=== PATIENT | female | born 1945 | race African-American/Black ===

== ENCOUNTER 2017-11-30 07:23 | Emergency (ER) | payer MEDICARE, SELFPAY ==
[2017-11-30] MEDS ORDERED: Labetalol HCl 100 MG/20 ML VIAL ONE ×2 (08:00→08:37)
[2017-11-30 08:43] LABS: Anion Gap 18 mmol/L (10-20); BUN (Urea Nitrogen) 20 mg/dL (9.8-20.1); Calc. Creatinine Clearance 0 mL/min (70-130); Calcium 9.5 mg/dL (7.8-10.44); Carbon Dioxide 21 mmol/L (23-31); Chloride 102 mmol/L (98-107); Estimated GFR-MDRD 69; Glucose 142 mg/dL (80-115); Potassium 4.3 mmol/L (3.5-5.1); Sodium 137 mmol/L (136-145)
[2017-11-30 08:56] LABS: #Basophils 0.2 thou/uL (0.0-0.2); #Eosinphils 0.1 thou/uL (0.0-0.7); #Lymphocytes 2.4 thou/uL (1.20-3.40); #Monocytes 0.5 thou/uL (0.11-0.59); #Neutrophils 4.7 thou/uL (1.40-6.50); %Basophils 2.1 % (0.0-1.0); %Monocytes 5.9 % (0.0-10.0); Hemoglobin 12.8 g/dL (12.0-16.0); Mean Corpuscular HGB CONC 31.8 g/dL (32.0-36.0); Mean Corpuscular Hemoglobin 26.5 pg (27.0-31.0); Mean Corpuscular Volume 83.3 fl (81.0-99.0); Mean Platelet Volume 13.8 fL (7.4-10.4); Platelet Count 178 thou/uL (130-400); RBC Distribution Width 12.2 % (11.5-14.5); Red Blood Cell (RBC) Count 4.83 mill/uL (4.20-5.40); White Blood Cell (WBC) Count 7.9 thou/uL (4.8-10.8)
== END 2017-11-30 09:20 | disposition home or self-care (01) ==
LOC: NAV ERS 07:23
DX: H43.11 Vitreous hemorrhage, right eye (principal); I10 Essential (primary) hypertension; E11.9 Type 2 diabetes mellitus without complications; F17.210 Nicotine dependence, cigarettes, uncomplicated; Z79.899 Other long term (current) drug therapy
CPT/HCPCS: 80048; 85025; 96374; 99406

== ENCOUNTER 2018-02-24 07:24 | Emergency (ER) | payer MEDICARE | END 2018-02-24 08:01 | disposition home or self-care (01) | LOC: NAV ERS 07:24 | DX: M25.531 Pain in right wrist (principal); M25.541 Pain in joints of right hand; I10 Essential (primary) hypertension; E11.9 Type 2 diabetes mellitus without complications; F17.210 Nicotine dependence, cigarettes, uncomplicated; Z79.899 Other long term (current) drug therapy | CPT/HCPCS: 99283 ==

== ENCOUNTER 2018-04-02 11:02 | Emergency (ER) | payer MEDICARE ==
[2018-04-02 13:04] LABS: Hemoglobin 10.3 g/dL (12.0-16.0); Mean Corpuscular HGB CONC 31.4 g/dL (32.0-36.0); Mean Corpuscular Hemoglobin 25.8 pg (27.0-31.0); Mean Corpuscular Volume 82.3 fl (81.0-99.0); Mean Platelet Volume 10.5 fL (7.4-10.4); Platelet Count 264 thou/uL (130-400); RBC Distribution Width 11.6 % (11.5-14.5); White Blood Cell (WBC) Count 11.2 thou/uL (4.8-10.8)
[2018-04-02 13:13] LABS: ALT (SGPT) 8 U/L (8-55); AST (SGOT) 12 U/L (5-34); Albumin 3.3 g/dL (3.4-4.8); Alkaline Phosphatase 78 U/L (40-150); Anion Gap 15 mmol/L (10-20); BUN (Urea Nitrogen) 15 mg/dL (9.8-20.1); Bilirubin, Total 0.3 mg/dL (0.2-1.2); Calc. Creatinine Clearance 0 mL/min (70-130); Calcium 9.1 mg/dL (7.8-10.44); Carbon Dioxide 23 mmol/L (23-31); Chloride 103 mmol/L (98-107); Estimated GFR-MDRD 86; Globulin 3.4 g/dL (2.4-3.5); Glucose 156 mg/dL (80-115); Potassium 4.3 mmol/L (3.5-5.1); Protein, Total 6.7 g/dL (6.0-8.3); Sodium 137 mmol/L (136-145)
[2018-04-02 13:14] LABS: Band 2 % (5-11); Eosinophils 1 % (0-10); Hypochromia SLIGHT = 6-15 cells (100X) (0-5/hpf); Lymphocytes 26 % (21-51); MDiff Complete? YES; Monocytes 6 % (0-10); Neutrophil 64 % (42-75); PLT Morphology Comment Appears Adequate
[2018-04-02 14:08] LABS: Bilirubin Negative (Negative); Blood, Urine Small (Negative); Clarity Slightly Cloudy (Clear); Glucose, Urine (Dipstick) Negative (Negative); Leukocyte Moderate (Negative); Nitrite Positive (Negative); Protein, Urine (Dipstick) 30 mg/dL (Neg-Trace); Specific Gravity, Urine 1.015 (1.005-1.030)
[2018-04-02 14:16] LABS: Bacteria/HPF 3+ HPF (None Seen); RBC/HPF 0-3 HPF (0-3); Squamous Epithelial 0-3 HPF (0-3)
== END 2018-04-02 14:32 | disposition home or self-care (01) ==
LOC: NAV ERS 11:02
DX: N30.00 Acute cystitis without hematuria (principal); E11.65 Type 2 diabetes mellitus with hyperglycemia; I10 Essential (primary) hypertension; F17.210 Nicotine dependence, cigarettes, uncomplicated
CPT/HCPCS: 36416; 80053; 81003; 81015; 84443; 85025; 87077; 87086; 87186; 96360

== ENCOUNTER 2018-04-08 07:16 | Emergency (ER) | payer MEDICARE | END 2018-04-08 07:45 | disposition home or self-care (01) | LOC: NAV ERS 07:16 | DX: M13.0 Polyarthritis, unspecified (principal); E11.9 Type 2 diabetes mellitus without complications; I10 Essential (primary) hypertension; F17.210 Nicotine dependence, cigarettes, uncomplicated; Z79.899 Other long term (current) drug therapy | CPT/HCPCS: 99283 ==

== ENCOUNTER 2019-10-23 09:48 | Emergency (ER) | payer MEDICARE ==
[2019-10-23] MEDS ORDERED: Sodium Chloride 0.9% 1,000 ML ONE (10:10)
[2019-10-23] MEDS ORDERED: Adenosine 6 MG/2 ML VIAL ONE (10:38)
[2019-10-23 10:41] LABS: ALT (SGPT) 10 U/L (8-55); AST (SGOT) 18 U/L (5-34); Albumin 3.9 g/dL (3.4-4.8); Alkaline Phosphatase 81 U/L (40-110); Anion Gap 20 mmol/L (10-20); BUN (Urea Nitrogen) 20 mg/dL (9.8-20.1); Bilirubin, Total 0.2 mg/dL (0.2-1.2); CK (CPK) 121 U/L (29-168); Calc. Creatinine Clearance 0 mL/min (70-130); Calcium 8.6 mg/dL (7.8-10.44); Carbon Dioxide 23 mmol/L (23-31); Chloride 103 mmol/L (98-107); Estimated GFR-MDRD 49; Globulin 3.2 g/dL (2.4-3.5); Glucose 200 mg/dL (83-110); Protein, Total 7.1 g/dL (6.0-8.3); Sodium 142 mmol/L (136-145)
[2019-10-23 11:15] LABS: Hemoglobin 12.7 g/dL (12.0-16.0); MDiff Complete? YES; Mean Corpuscular HGB CONC 30.6 g/dL (32.0-36.0); Mean Corpuscular Hemoglobin 26.7 pg (27.0-31.0); Mean Corpuscular Volume 87.1 fL (78.0-98.0); Mean Platelet Volume 11.1 fL (7.4-10.4); Platelet Count 193 thou/uL (130-400); RBC Distribution Width 13.1 % (11.5-14.5); Red Blood Cell (RBC) Count 4.79 mill/uL (4.20-5.40); White Blood Cell (WBC) Count 5.7 thou/uL (4.8-10.8)
[2019-10-23 11:16] LABS: Eosinophils 2 % (0-10); Lymphocytes 30 % (21-51); Monocytes 9 % (0-10); Neutrophil 59 % (42-75); Platelet Morphology Comment Appears Adequate
[2019-10-23 14:08] LABS: Lactic Acid 1.6 mmol/L (0.5-2.2)
[2019-10-23] MEDS ORDERED: Digoxin 0.125 MG TAB ONE (14:17)
== END 2019-10-23 14:30 | disposition home or self-care (01) ==
LOC: NAV ERS 09:48
DX: I47.1 Supraventricular tachycardia (principal); J06.9 Acute upper respiratory infection, unspecified; E11.9 Type 2 diabetes mellitus without complications; I10 Essential (primary) hypertension; M19.90 Unspecified osteoarthritis, unspecified site; F17.210 Nicotine dependence, cigarettes, uncomplicated; Z79.899 Other long term (current) drug therapy
CPT/HCPCS: 80053; 82550; 83605; 84484; 85025; 87804; 93005; 96361; 96374; J0153; J7050

== ENCOUNTER 2023-11-05 21:51 | Emergency (ER) | payer OTHER, BC ==
[~2023-11-05 21:51] MED LIST: AMIODARONE 150 MG/100 ML ONE
[2023-11-05] MEDS ORDERED: Ipratropium/Albuterol 3 ML NEB ONE (22:01)
[2023-11-05] MEDS ORDERED: Nitroglycerin 2% Ointment 1 INCH/1 GM Packet ONE (22:03)
[2023-11-05] MEDS ORDERED: Amiodarone 150 MG/3 ML VIAL ONE (22:20)
[2023-11-05] MEDS ORDERED: Aspirin Chewable 81 MG TAB ONE (22:20)
[2023-11-05] MEDS ORDERED: Sodium Chloride 0.9% 100 ML ONE ×2 (22:20→23:01)
[2023-11-05 22:21] LABS: Red Blood Cell (RBC) Count 4.93 mill/uL (4.20-5.40)
[2023-11-05 22:22] LABS: #Lymphocytes 4.8 thou/uL (1.20-3.40); #Monocytes 0.7 thou/uL (0.11-0.59); %Basophils 2.7 % (0.0-1.0); %Eosinophils 2.2 % (0.0-10.0); %Lymphocytes 47.9 % (21.0-51.0); %Monocytes 7.3 % (0.0-10.0); %Neutrophils 39.9 % (42.0-75.0); Hematocrit 43.5 % (36.0-47.0); Hemoglobin 13.7 g/dL (12.0-16.0); Manual Diff?? NO; Mean Corpuscular HGB CONC 31.4 g/dL (32.0-36.0); Mean Corpuscular Hemoglobin 27.7 pg (27.0-31.0); Mean Corpuscular Volume 88.4 fl (78.0-98.0); Mean Platelet Volume 10.8 fL (7.4-10.4); Platelet Count 233 10x3/uL (130-400); RBC Distribution Width 13.1 % (11.5-14.5)
[2023-11-05 22:23] LABS: #Basophils 0.3 thou/uL (0.0-0.2); #Eosinphils 0.2 thou/uL (0.0-0.7)
[2023-11-05 22:31] LABS: ALT (SGPT) 7 U/L (8-55); AST (SGOT) 17 U/L (5-34); Albumin 4.4 g/dL (3.4-4.8); Alkaline Phosphatase 85 U/L (40-110); Anion Gap 17 mmol/L (10-20); BUN (Urea Nitrogen) 24 mg/dL (9.8-20.1); Bilirubin, Total 0.4 mg/dL (0.2-1.2); Calc. Creatinine Clearance 0 mL/min (70-130); Calcium 9.2 mg/dL (7.8-10.44); Carbon Dioxide 21 mmol/L (23-31); Chloride 107 mmol/L (98-107); Estimated GFR 41; Globulin 3.7 g/dL (2.4-3.5); Glucose 153 mg/dL (83-110); Potassium 3.9 mmol/L (3.5-5.1); Protein, Total 8.1 g/dL (5.8-8.1); Sodium 141 mmol/L (136-145)
[2023-11-05 22:32] LABS: Troponin I 0.147 ng/mL (< 0.028)
[2023-11-05] MEDS ORDERED: Furosemide 40 MG (4 mL) VIAL ONE (22:53)
[2023-11-05] MEDS ORDERED: cefTRIAXone (ROCEPHIN) 2 GM VIAL ONE (23:01)
[2023-11-05 23:23] LABS: SARS-CoV-2 NAA Rapid Test Not Detected (NotDetected)
== END 2023-11-05 23:22 | disposition short-term general hospital (02) ==
LOC: NAV ERS 21:51
DX: I50.1 Left ventricular failure, unspecified (principal); I16.1 Hypertensive emergency; I47.20 Ventricular tachycardia, unspecified; R79.89 Other specified abnormal findings of blood chemistry; E11.9 Type 2 diabetes mellitus without complications; I10 Essential (primary) hypertension; E03.9 Hypothyroidism, unspecified; F17.210 Nicotine dependence, cigarettes, uncomplicated; Z79.899 Other long term (current) drug therapy
CPT/HCPCS: 71045; 80053; 83880; 84484; 85025; 87040; 87804 ×2; 93005; 94640; 94760; J0283; U0002; 96365; 96374; 96375; 96376; J0282; J0696; J1940; J3490; J7620

== ENCOUNTER 2025-06-03 07:33 | Emergency (ER) | payer OTHER ==
[2025-06-03] MEDS ORDERED: Aspirin Chewable 81 MG TAB ONE (08:16)
[2025-06-03 08:18] LABS: #Basophils 0.2 thou/uL (0.0-0.2); #Eosinophils 0.1 thou/uL (0.0-0.7); #Lymphocytes 3.1 thou/uL (1.20-3.40); #Monocytes 0.4 thou/uL (0.11-0.59); #Neutrophils 3.7 thou/uL (1.40-6.50); %Basophils 2.0 % (0.0-1.0); %Eosinophils 1.7 % (0.0-10.0); %Lymphocytes 41.2 % (21.0-51.0); %Monocytes 5.6 % (0.0-10.0); %Neutrophils 49.6 % (42.0-75.0); Hematocrit 38.3 % (36.0-47.0); Hemoglobin 12.3 g/dL (12.0-16.0); Mean Corpuscular Hemoglobin 27.1 pg (27.0-31.0); Mean Corpuscular Volume 84.4 fl (78.0-98.0); Platelet Count 237 10x3/uL (130-400); Red Blood Cell (RBC) Count 4.54 mill/uL (4.20-5.40); White Blood Cell (WBC) Count 7.6 10x3/uL (4.8-10.8)
[2025-06-03 08:32] LABS: ALT (SGPT) Less than 7 U/L (Less than 34); AST (SGOT) 17 U/L (11-34); Albumin 3.8 g/dL (3.1-4.5); Alkaline Phosphatase 70 U/L (40-110); Anion Gap 21 mmol/L (10-20); BUN (Urea Nitrogen) 25 mg/dL (9.8-20.1); Bilirubin, Total 0.4 mg/dL (0.3-1.2); Calc. Creatinine Clearance 0 mL/min (70-130); Calcium 9.6 mg/dL (7.8-10.44); Carbon Dioxide 21 mmol/L (23-31); Chloride 104 mmol/L (98-107); Globulin 3.6 g/dL (2.4-3.5); Glucose 152 mg/dL (83-110); Lipase 21 U/L (8-78); Potassium 4.3 mmol/L (3.5-5.1); Sodium 142 mmol/L (136-145); Troponin I 0.041 ng/mL (< 0.028)
[2025-06-03] MEDS ORDERED: Enoxaparin 100 MG (1 mL) SYRINGE ONE (11:25)
[2025-06-03 11:42] LABS: Magnesium 2.2 mg/dL (1.6-2.6)
[2025-06-03 11:44] LABS: Troponin I 0.052 ng/mL (< 0.028)
[2025-06-03 15:21] LABS: Troponin I 0.125 ng/mL (< 0.028)
== END 2025-06-03 15:43 | disposition short-term general hospital (02) ==
LOC: NAV ERS 07:33
DX: I21.4 Non-ST elevation (NSTEMI) myocardial infarction (principal); I44.7 Left bundle-branch block, unspecified; I11.0 Hypertensive heart disease with heart failure; I50.9 Heart failure, unspecified; R00.0 Tachycardia, unspecified; E11.9 Type 2 diabetes mellitus without complications; E03.9 Hypothyroidism, unspecified; Z79.899 Other long term (current) drug therapy
CPT/HCPCS: 36415; 71045; 80053; 83690; 83735; 83880; 84100; 84443; 84484; 85025; 85379; 93005; J1650; J7030

== ENCOUNTER 2025-09-11 10:04 | Emergency (ER) | payer OTHER ==
[2025-09-11 11:09] LABS: Red Blood Cell (RBC) Count 4.22 mill/uL (4.20-5.40); White Blood Cell (WBC) Count 6.6 10x3/uL (4.8-10.8)
[2025-09-11 11:10] LABS: #Basophils 0.2 thou/uL (0.0-0.2); #Eosinophils 0.0 thou/uL (0.0-0.7); #Lymphocytes 2.1 thou/uL (1.20-3.40); #Monocytes 0.6 thou/uL (0.11-0.59); #Neutrophils 3.7 thou/uL (1.40-6.50); %Basophils 3.2 % (0.0-1.0); %Eosinophils 0.5 % (0.0-10.0); %Lymphocytes 31.4 % (21.0-51.0); %Monocytes 10.0 % (0.0-10.0); %Neutrophils 55.9 % (42.0-75.0); Hematocrit 35.6 % (36.0-47.0); Hemoglobin 11.5 g/dL (12.0-16.0); Manual Diff?? NO; Mean Corpuscular Hemoglobin 27.4 pg (27.0-31.0); Mean Corpuscular Volume 84.4 fl (78.0-98.0); Platelet Count 174 10x3/uL (130-400)
[2025-09-11 11:14] LABS: ALT (SGPT) 8 U/L (Less than 34); AST (SGOT) 22 U/L (11-34); Albumin 3.8 g/dL (3.1-4.5); Alkaline Phosphatase 67 U/L (40-110); Anion Gap 18 mmol/L (10-20); BUN (Urea Nitrogen) 23 mg/dL (9.8-20.1); Bilirubin, Total 0.4 mg/dL (0.3-1.2); Calc. Creatinine Clearance 0 mL/min (70-130); Calcium 9.1 mg/dL (7.8-10.44); Carbon Dioxide 20 mmol/L (23-31); Chloride 106 mmol/L (98-107); Globulin 3.3 g/dL (2.4-3.5); Glucose 113 mg/dL (83-110); Potassium 4.8 mmol/L (3.5-5.1); Sodium 139 mmol/L (136-145)
[2025-09-11 11:15] LABS: Troponin I 0.020 ng/mL (< 0.028)
[2025-09-11 13:35] LABS: Glucose, Urine (Dipstick) Negative (Negative); Leukocyte Negative (Negative); Protein, Urine (Dipstick) Negative (Neg-Trace); Specific Gravity, Urine 1.010 (1.005-1.030)
[2025-09-11 13:42] LABS: Bacteria/HPF Rare-Few HPF (None Seen); CAUTI Indications for Culture Alt mental st,lethar; RBC/HPF 0-3 HPF (0-3); WBC/HPF 0-3 HPF (0-3)
[2025-09-11 13:43] LABS: Urine Culture Reflex No No
[2025-09-11 14:12] LABS: Magnesium 2.0 mg/dL (1.6-2.6)
== END 2025-09-11 15:14 | disposition short-term general hospital (02) ==
LOC: NAV ERS 10:04
DX: R00.1 Bradycardia, unspecified (principal); I10 Essential (primary) hypertension; I25.2 Old myocardial infarction; E11.9 Type 2 diabetes mellitus without complications; E03.9 Hypothyroidism, unspecified; Z79.899 Other long term (current) drug therapy; Z79.890 Hormone replacement therapy
CPT/HCPCS: 80053; 81001; 83735; 84484; 85025; 99284

== ENCOUNTER 2025-09-20 11:31 | Emergency (ER) | payer OTHER ==
[2025-09-20 12:09] LABS: ALT (SGPT) 11 U/L (Less than 34); AST (SGOT) 25 U/L (11-34); Albumin 4.0 g/dL (3.1-4.5); Alkaline Phosphatase 75 U/L (40-110); Anion Gap 20 mmol/L (10-20); BUN (Urea Nitrogen) 31 mg/dL (9.8-20.1); Bilirubin, Total 0.4 mg/dL (0.3-1.2); Calc. Creatinine Clearance 0 mL/min (70-130); Calcium 9.6 mg/dL (7.8-10.44); Carbon Dioxide 17 mmol/L (23-31); Chloride 107 mmol/L (98-107); Globulin 3.6 g/dL (2.4-3.5); Glucose 126 mg/dL (83-110); Potassium 4.9 mmol/L (3.5-5.1); Sodium 139 mmol/L (136-145)
[2025-09-20 12:15] LABS: Troponin I 0.048 ng/mL (< 0.028)
[2025-09-20 13:22] LABS: Hematocrit 38.6 % (36.0-47.0); Hemoglobin 12.2 g/dL (12.0-16.0); Mean Corpuscular Hemoglobin 27.2 pg (27.0-31.0); Mean Corpuscular Volume 85.9 fl (78.0-98.0); Platelet Count 151 10x3/uL (130-400); Red Blood Cell (RBC) Count 4.49 mill/uL (4.20-5.40); White Blood Cell (WBC) Count 8.7 10x3/uL (4.8-10.8)
[2025-09-20 13:26] LABS: MDiff Complete? YES
[2025-09-20] MEDS ORDERED: dilTIAZem 25 MG/5 ML VIAL ONE (13:33)
[2025-09-20 15:23] LABS: Troponin I 0.042 ng/mL (< 0.028)
[2025-09-20] MEDS ORDERED: Losartan 50 MG TAB ONE (19:37)
== END 2025-09-20 22:18 | disposition short-term general hospital (02) ==
LOC: NAV ERS 11:31
DX: I47.10 Supraventricular tachycardia, unspecified (principal); E86.0 Dehydration; N28.9 Disorder of kidney and ureter, unspecified; I10 Essential (primary) hypertension; E11.9 Type 2 diabetes mellitus without complications; E03.9 Hypothyroidism, unspecified; Z79.82 Long term (current) use of aspirin; Z79.02 Long term (current) use of antithrombotics/antiplatelets; Z79.899 Other long term (current) drug therapy
CPT/HCPCS: 36415; 71045; 80053; 83880; 84484; 85025; 85379; 93005; 96365; 96366; 96376; J7030; J7120

== ENCOUNTER 2025-09-28 09:08 | Emergency (ER) | payer OTHER ==
[~2025-09-28 09:08] MED LIST changes: -AMIODARONE 150 MG/100 ML ONE; +Iopamidol 370 76% 100 ML VIAL ONE
[2025-09-28 10:18] LABS: Hematocrit 35.7 % (36.0-47.0); Hemoglobin 11.9 g/dL (12.0-16.0); Mean Corpuscular Volume 83.7 fl (78.0-98.0); Red Blood Cell (RBC) Count 4.26 mill/uL (4.20-5.40); Troponin I 0.037 ng/mL (< 0.028); White Blood Cell (WBC) Count 7.9 10x3/uL (4.8-10.8)
[2025-09-28 10:19] LABS: ALT (SGPT) 8 U/L (Less than 34); AST (SGOT) 21 U/L (11-34); Albumin 3.8 g/dL (3.1-4.5); Alkaline Phosphatase 75 U/L (40-110); Anion Gap 16 mmol/L (10-20); BUN (Urea Nitrogen) 21 mg/dL (9.8-20.1); Bilirubin, Total 0.4 mg/dL (0.3-1.2); Calc. Creatinine Clearance 0 mL/min (70-130); Calcium 9.5 mg/dL (7.8-10.44); Carbon Dioxide 22 mmol/L (23-31); Chloride 104 mmol/L (98-107); Globulin 3.5 g/dL (2.4-3.5); Glucose 124 mg/dL (83-110); MDiff Complete? YES; Manual Diff?? YES; Mean Corpuscular Hemoglobin 27.9 pg (27.0-31.0); Platelet Adequacy Comment Platelets Normal; Platelet Count 198 10x3/uL (130-400); Potassium 4.5 mmol/L (3.5-5.1); Sodium 137 mmol/L (136-145)
[2025-09-28] MEDS ORDERED: diphenhydrAMINE 50 MG/ML VIAL ONE (11:41)
[2025-09-28] MEDS ORDERED: Aspirin Chewable 81 MG TAB ONE (13:24)
== END 2025-09-28 14:00 | disposition short-term general hospital (02) ==
LOC: NAV ERS 09:08
DX: T83.84XA Pain due to genitourinary prosthetic devices, implants and grafts, initial encounter (principal); R06.02 Shortness of breath; R79.89 Other specified abnormal findings of blood chemistry; R00.0 Tachycardia, unspecified; E86.1 Hypovolemia; R29.700 NIHSS score 0; I11.0 Hypertensive heart disease with heart failure; I50.9 Heart failure, unspecified; E11.9 Type 2 diabetes mellitus without complications; I25.2 Old myocardial infarction; Z79.82 Long term (current) use of aspirin; Z79.02 Long term (current) use of antithrombotics/antiplatelets; Z79.899 Other long term (current) drug therapy
CPT/HCPCS: 71045; 71275; 80053; 83880; 84484; 85025; 85379; 93005; 94760; J1200; J7030; Q9967; 36415; 96361; 96374